=== PATIENT | female | born 1985 | race Caucasian/White ===

== ENCOUNTER 2020-09-23 08:48 | Emergency (ER) | payer OTHER ==
[2020-09-23 08:57] VITALS: RESP 18
[2020-09-23] MEDS ORDERED: FLUORESCEIN STRIPS 1 MG STRIP RIGHT EYE STA (09:30)
[2020-09-23] MEDS ORDERED: PROPARACAINE 0.5% OPHTH DROPS 15 ML BTL RIGHT EYE STA (09:31)
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
[2020-09-23] MEDS ORDERED: BACITRACIN OINT 1 EACH PACKET TOPICAL STA (10:43)
[2020-09-23 11:02] VITALS: BP 131/65; PULSE 62; TEMP 98
== END 2020-09-23 10:59 | disposition home or self-care (01) ==
LOC: EC 08:48
DX: T65.891A Toxic effect of other specified substances, accidental (unintentional), initial encounter (principal); T20.49XA Corrosion of unspecified degree of multiple sites of head, face, and neck, initial encounter; F17.200 Nicotine dependence, unspecified, uncomplicated
CPT/HCPCS: 99283